=== PATIENT | male | born 1990 | race Caucasian/White ===

== ENCOUNTER 2018-12-10 14:54 | Emergency (ER) | payer OTHER ==
[~2018-12-10] VITALS: Ht 152.4 cm; Wt 78.0 kg
[~2018-12-10 14:54] MED LIST: FAMO-96 PO; MAG-19 PO
[2018-12-10 14:57] VITALS: BP 112/61; PULSE 61; RESP 18; Ht 152.4 cm; Wt 78.0 kg
[2018-12-10] MEDS ORDERED: LIDOCAINE/MYLANTA 40 ML BTL PO STA (15:52)
[2018-12-10] MEDS ORDERED: BELLADONNA/PHENOBARBITAL TAB PO STA (15:52)
[2018-12-10] MEDS ORDERED: FAMOTIDINE 20 MG TAB PO STA (15:52)
[2018-12-10] MEDS ORDERED: ONDANSETRON (ODT) 4 MG TAB ODT STA (15:52)
== END 2018-12-10 18:08 | disposition home or self-care (01) ==
LOC: FTE 14:54
DX: K21.9 Gastro-esophageal reflux disease without esophagitis (principal); N20.0 Calculus of kidney
CPT/HCPCS: 36415; 74176; 76705; 80053; 81001; 83690; 85025; Z7502; Z7610